=== PATIENT | female | born 1970 | race Caucasian/White ===

== ENCOUNTER 2017-12-10 10:56 | Emergency (ER) | payer BC ==
[2017-12-10] MEDS ORDERED: Triple Antibiotic Oint 1 GM Packet ONE ×2 (11:34→11:46)
[2017-12-10] MEDS ORDERED: Sulfameth/Trimethoprim DS 800-160mg TAB ONE (11:46)
[2017-12-10] MEDS ORDERED: HYDROcodone/Acetaminophen 10/325 mg Tablet ONE (11:46)
[2017-12-10] MEDS ORDERED: Cephalexin 250 MG CAP ONE (11:46)
[2017-12-10] MEDS ORDERED: Naproxen 500 MG TAB ONE (11:46)
== END 2017-12-10 11:55 | disposition home or self-care (01) ==
LOC: MADERS 10:56
DX: L02.31 Cutaneous abscess of buttock (principal)
CPT/HCPCS: 99282

== ENCOUNTER 2018-07-25 17:21 | Emergency (ER) | payer BC | END 2018-07-25 18:01 | disposition home or self-care (01) | LOC: MADERS 17:21 | DX: J02.9 Acute pharyngitis, unspecified (principal); E03.9 Hypothyroidism, unspecified; Z79.899 Other long term (current) drug therapy | CPT/HCPCS: 87081; 87430; 99283 ==